=== PATIENT | female | born 1960 | race Caucasian/White ===

== ENCOUNTER 2020-01-02 18:50 | Emergency (ER) | payer BC, SELFPAY ==
[2020-01-02 19:18] VITALS: BP 112/80; PULSE 72; RESP 16; TEMP 36.7; O2SAT 98
--- NOTE | 2020-01-02 19:28 | ED.GENADULT ---
HPI - General Adult General Chief complaint: Dizziness Stated complaint: finger/toes/pain/dizziness History of Present Illness HPI narrative: This is a 59 year old female that is coming in with numbness and tingling to bilateral feet and hands has had some spinal stenosis for years of the c5,-7 it has progressively gotten worse and she has had to tilt her head a certain way for her hands not to become flaccid. Patient states she is also having this numbness and tingling to feet . Patient is most concerned because she is starting to have loss of continence and she does not know what to do Related Data Home Medications Medication Instructions Recorded Confirmed acyclovir 01/02/20 alprazolam 01/02/20 levothyroxine 01/02/20 Allergies Allergy/AdvReac Type Severity Reaction Status Date / Time codeine Allergy Unknown Verified 01/02/20 19:17 Review of Systems Review of Systems: Narrative: CONSTITUTIONAL: Denies fever, chills, or sweats. EYES: Denies visual changes, redness, or discharge. ENT: Denies rhinorrhea, congestion, sore throat, or otalgia. CARDIOVASCULAR:Denies chest pain, palpitations, or edema. RESPIRATORY: Denies cough or dyspnea. GASTROINTESTINAL: Denies abdominal pain, nausea, vomiting, or diarrhea. GENITOURINARY: Denies dysuria or hematuria. SKIN:[Denies rash or itching. MUSCULOSKELETAL:Denies back pain, joint pain, or myalgia. NEUROLOGIC: Denies headache, reports numbness, or weakness. Loss of bladder control PSYCHIATRIC:Denies anxiety or depression PMFSH Comments At time as signature, I have reviewed and agree with nursing past medical, social, surgical and family history. Please see nursing chart for further information. There is no relevant family history pertinent to the presenting complaint. Exam Narrative: Exam Narrative: GENERAL:Well-appearing, well-nourished, and in no acute distress. HEAD:Normocephalic, atraumatic. EYES: PERRLA and EOMI. ENT: Nares clear, no rhinorrhea or epistaxis. Mucous membranes moist. NECK: Supple. CHEST: Clear to auscultation. No respiratory distress. HEART: Regular rate and rhythm. No murmur heard. Normal peripheral pulses. ABDOMEN: Soft, nontender, nondistended, normal active bowel sounds. Patient has started to lose bladder control bilateral hands and feet having numbness and tingling EXTREMITIES: Decreased range of motion arms go flaccid when head is turned a certain way. No edema. SKIN: Warm, dry, no rash. NEURO: No focal deficits. Alert and oriented x3. Multiple neuro deficits Patient has a past medical history of severe spinal stenosis patient is supposed to be seeing a neurosurgeon symptoms have increasingly gotten worse the past day. Per patient her job she is lifting a lot of heavy things she is dizzy has to tilt her head in order to not feel so dizzy and is starting to lose control of her hand as well as bladder. Course REFERRAL MANAGER/PA Physician Supervision Discussed with patient she is going to need a neurosurgeon she needs to go to the emergency room does not want to take ambulance had a long conversation with her patient will go to [facility] because place spoke to Shanell in the emergency room patient significant other picked her up Vital Signs Vital signs: Vital Signs Temperature 98.1 F 01/02/20 19:18 Pulse Rate 72 01/02/20 19:18 Respiratory Rate 16 01/02/20 19:18 Blood Pressure 112/80 01/02/20 19:18 Pulse Oximetry 98 01/02/20 19:18 Temperature 98.1 F 01/02/20 19:18 Pulse Rate 72 01/02/20 19:18 Respiratory Rate 16 01/02/20 19:18 Blood Pressure 112/80 01/02/20 19:18 Pulse Oximetry 98 01/02/20 19:18 Medical Decision Making Vital Signs Vital Signs: Vital Signs Temperature 98.1 F 01/02/20 19:18 Pulse Rate 72 01/02/20 19:18 Respiratory Rate 16 01/02/20 19:18 Blood Pressure 112/80 01/02/20 19:18 Pulse Oximetry 98 01/02/20 19:18 Temperature 98.1 F 01/02/20 19:18 Pulse Rate 72 01/02/20 19:18 Res
== END 2020-01-02 19:40 | disposition short-term general hospital (02) ==
LOC: EXPCOLL 19:03
PROVIDERS: Emergency Provider Nurse Practitioner Family
DX: R20.0 Anesthesia of skin (principal); R20.2 Paresthesia of skin; R42 Dizziness and giddiness; R32 Unspecified urinary incontinence
CPT/HCPCS: 99212; G0463

== ENCOUNTER 2020-02-18 11:52 | Emergency (ER) | payer BC, SELFPAY ==
[2020-02-18 12:10] VITALS: BP 109/65; PULSE 78; RESP 16; TEMP 37.1; O2SAT 99
--- NOTE | 2020-02-18 13:13 | ED.GENADULT ---
HPI - General Adult General Chief complaint: Allergic Reaction Stated complaint: allergic reaction Time Seen by Provider: 02/18/20 13:13 Source: patient and RN notes reviewed Mode of arrival: ambulatory Limitations: no limitations History of Present Illness HPI narrative: 59-year-old female presents with complaints of bilateral lower leg swelling in which she relates to taking Bactrim for the past 2 days. Tayla says she started Bactrim 2 days ago (last 1 this morning at 06:00) due to urinary complaints and noticed lower leg swelling 36-48 hours later after having a day of generalized body itching without rash which has subsided. Swelling to lower legs has increased over the last 24 hours. No treatment. Denies new changes in personal hygiene products or laundry detergent. No new foods or any other new medications. No burning, bleeding, or drainage. Denies fever, chills, headaches, weakness, fatigue, myalgia, facial swelling, or tongue swelling. Denies chest pain or dyspnea. Post-Menopausal. The patient reports she have not been diagnosed with COVID-19. The patient reports she is not waiting for the results of a COVID-19 lab test. The patient reports she do not have fever, chills, weakness, fatigue, myalgia, or facial swelling. The patient reports she do not have a new or worsening cough or shortness of breath. Denies chest pain. The patient reports she do not have any rhinorrhea, congestion, sore throat, nausea, vomiting, abdominal pain, and diarrhea. Tolerating po intake well. Denies recent traveling. Denies concerns for COVID-19 or exposures been home since [id number] order except for essential household needs, working, and return home. At this time, patient is not suspected of having COVID-19. Some parts of this dictation were generated by voice recognition software and may contain typographical and/or grammatical inaccuracies. Related Data Home Medications Medication Instructions Recorded Confirmed acyclovir 01/02/20 alprazolam 01/02/20 levothyroxine 01/02/20 sulfamethoxazole-trimethoprim 02/18/20 Allergies Allergy/AdvReac Type Severity Reaction Status Date / Time codeine Allergy Unknown Verified 01/02/20 19:17 sulfamethoxazole Allergy Swelling Verified 02/18/20 13:23 [From Bactrim] trimethoprim [From Bactrim] Allergy Swelling Verified 02/18/20 13:23 Review of Systems Review of Systems: Narrative: CONSTITUTIONAL: Denies fever, chills, sweats. EYES: Denies visual changes, redness, discharge. ENT: Denies rhinorrhea, congestion, sore throat, otalgia. CARDIOVASCULAR: Denies chest pain, palpitations, edema. Complains of bilateral lower leg swelling in which she relates to taking Bactrim RESPIRATORY: Denies dyspnea, wheezing, cough. GASTROINTESTINAL: Denies abdominal pain, nausea, vomiting, diarrhea. GENITOURINARY: Denies dysuria, hematuria, abnormal discharge. SKIN: Complains of generalized body itching without rash-relieved. Denies drainage. MUSCULOSKELETAL: Denies acute back pain, joint pain, or myalgia. NEUROLOGIC: Denies numbness or focal weakness. PSYCHIATRIC: Denies anxiety or depression. All systems reviewed & are unremarkable except as noted in HPI and below. [facility] Past Medical History Medical History (Updated 02/24/20 @ 17:37 by KAVON Neal) Anxiety Back pain Hypothyroidism Kidney damage LT due to UTI Menopause Ureteral reflux Noted with IVP dye UTI (urinary tract infection) Surgical History Surgical History (Updated 02/18/20 @ 13:23 by KAVON Neal) No significant past surgical history Family History Family History (Updated 02/18/20 @ 13:23 by KAVON Neal) Father Heart disease Diabetes mellitus Mother No problems noted. Social History Social History (Updated 02/18/20 @ 13:24 by KAVON Neal) Smoking status: Former smoker Smoking end date: 09/17/90 Alcohol intake: current Substance use: never
--- NOTE | 2020-02-18 13:22 | PC.NURSE ---
in br to obtain ua spec.
== END 2020-02-18 13:38 | disposition home or self-care (01) ==
PROVIDERS: Emergency Provider Nurse Practitioner Family
DX: R30.0 Dysuria (principal); T36.8X5A Adverse effect of other systemic antibiotics, initial encounter; F41.9 Anxiety disorder, unspecified; E03.9 Hypothyroidism, unspecified; Z87.440 Personal history of urinary (tract) infections; Z87.891 Personal history of nicotine dependence
CPT/HCPCS: 81003; 87086; 99213; G0463

== ENCOUNTER 2020-03-03 12:41 | Emergency (ER) | payer BC, SELFPAY ==
--- NOTE | 2020-03-03 13:56 | PC.NURSE ---
unkown time or reason for walkout. registration stated after registration process pt said was going shopping first and would be back.
--- NOTE | 2020-03-03 13:59 | PC.NURSE ---
this rn did not see or talk to pt. unkown complaint or pain level. registration stated left after registration process was done. was going shopping and then was coming back.
== END 2020-03-03 14:01 | disposition left against medical advice (07) ==
PROVIDERS: Emergency Provider Nurse Practitioner
DX: Z53.21 Procedure and treatment not carried out due to patient leaving prior to being seen by health care provider (principal)
CPT/HCPCS: 99199

== ENCOUNTER 2020-05-07 08:59 | Outpatient (CLI) | payer BC, SELFPAY ==
--- NOTE | 2020-05-07 | EST_ITS ---
Patient Info Name: Tayla Lopez Age: 59 years : 1960 Gender: Female Ht: 69 in Wt: 171 lbs BSA: 1.95 m2 Exam Date: 05/07/2020 11:14 AM Exam Location: [facility] Stress Patient Status: Outpatient Admit Date: 05/07/2020 Staff Ordering Physician: Demetri Llamas PA-C Attending Provider: Demetri Llamas PA-C Exercise Technologist: La Nena Nicole RDCS Exercise Physician: Chris Izquierdo DO Exam Type: CA stress test treadmill w NM Study Info Indications R07.9 - Chest pain, unspecified A pharmacological stress test was performed. Summary 1. 1. Negative Castro exercise stress test for ischemic ST changes by ECG criteria. 2. 2. Good functional capacity, achieving 10 METs of workload. 3. 3. Appropriate HR response to exercise. 4. 4. Appropriate HR recovery at 1 minute post exercise. 5. 5. Nuclear scan to follow and will be reported separately. Please correlate with it. 6. 6. Patient informed of the above results. Protocol: Castro Stress ECG Details Stage: REST Duration (min): 5 min : 19 sec Speed (mph): 0.0 Grade (%): 0 HR (bpm): 48 SBP (mmHg): 120 DBP (mmHg): 79 METS: --- Stage: REST Duration (min): 16 min : 52 sec Speed (mph): 0.0 Grade (%): 0 HR (bpm): 55 SBP (mmHg): 120 DBP (mmHg): 79 METS: --- Stage: STAGE 1 Duration (min): 1 min : 0 sec Speed (mph): 1.7 Grade (%): 10 HR (bpm): 91 SBP (mmHg): 120 DBP (mmHg): 79 METS: --- Stage: STAGE 1 Duration (min): 2 min : 0 sec Speed (mph): 1.7 Grade (%): 10 HR (bpm): 96 SBP (mmHg): 120 DBP (mmHg): 79 METS: --- Stage: STAGE 1 Duration (min): 3 min : 0 sec Speed (mph): 1.7 Grade (%): 10 HR (bpm): 98 SBP (mmHg): 140 DBP (mmHg): 76 METS: --- Stage: STAGE 2 Duration (min): 1 min : 0 sec Speed (mph): 2.5 Grade (%): 12 HR (bpm): 115 SBP (mmHg): 140 DBP (mmHg): 76 METS: --- Stage: STAGE 2 Duration (min): 2 min : 0 sec Speed (mph): 2.5 Grade (%): 12 HR (bpm): 127 SBP (mmHg): 154 DBP (mmHg): 79 METS: --- Stage: STAGE 2 Duration (min): 3 min : 0 sec Speed (mph): 2.5 Grade (%): 12 HR (bpm): 125 SBP (mmHg): 154 DBP (mmHg): 79 METS: --- Stage: STAGE 3 Duration (min): 1 min : 0 sec Speed (mph): 3.4 Grade (%): 14 HR (bpm): 146 SBP (mmHg): 151 DBP (mmHg): 82 METS: --- Stage: STAGE 3 Duration (min): 2 min : 0 sec Speed (mph): 3.4 Grade (%): 14 HR (bpm): 152 SBP (mmHg): 151 DBP (mmHg): 82 METS: --- Stage: STAGE 3 Duration (min): 3 min : 0 sec Speed (mph): 3.4 Grade (%): 14 HR (bpm): 157 SBP (mmHg): 161 DBP (mmHg): 89 METS: --- Stage: RECOVERY Duration (min): 0 min : 59 sec Speed (mph): 0.0 Grade (%): 0 HR (bpm): 105 SBP (mmHg): 161 DBP (mmHg): 89 METS: --- Stage:
== END 2020-05-07 09:00 | disposition home or self-care (01) ==
PROVIDERS: PCP Physician Assistant; Visit Provider Physician Assistant
DX: R07.9 Chest pain, unspecified (principal)
CPT/HCPCS: 93017

== ENCOUNTER 2020-05-07 09:12 | Outpatient (CLI) | payer BC, SELFPAY ==
--- NOTE | ~2020-05-07 | NM_ITS ---
EXAMINATION: NM stress w perf spect multi DATE: 05/07/2020 12:41 INDICATION: Chest pain. TECHNIQUE: Rest images were obtained following intravenous administration of 11.7 mCi Tc99m tetrofosm in ([employer]). The patient performed an exercise activity. At peak exercise, 32.2 mCi Tc99m tetrofosmi n (Myoview) was administered intravenously, and stress images were obtained. Data was reconstructed i nto short axis and horizontal and vertical long axis SPECT images. Gated SPECT images were also obtai dejuan. COMPARISON: None. FINDINGS: There is no definite reversible or fixed perfusion abnormality to suggest ischemia or infar ction. There is no segmental wall motion abnormality. Left ventricular ejection fraction measures > 70%. IMPRESSION: 1. No definite ischemia or infarct. 2. Normal left ventricular ejection fraction measuring >70%. Reviewed, dictated and finalized at location A.
--- NOTE | ~2020-05-07 | US_ITS ---
EXAMINATION: US carotid duplex BI DATE: 05/07/2020 09:57 INDICATION: Neck pain. TECHNIQUE: Grayscale, color Doppler, and pulsed Doppler images of the cervical carotid arteries were obtained. The degree of vessel stenosis is placed in one of the following categories: normal, <50%, 5 0-69%, >=70% but less than near-occlusion, near-occlusion, or total occlusion. Note that percent sten osis relative to normal distal artery lumen diameter is indirectly measured from velocity measurement s as described by Samy, et al. Radiology 2003; 229:340-346. COMPARISON: None. FINDINGS: RIGHT: The right common carotid artery (CCA) peak systolic velocity (PSV) is 62 cm/s. The right internal car otid artery (ICA) PSV is 53 cm/s. The right ICA end-diastolic velocity (EDV) is 26 cm/s. The right IC A/CCA PSV ratio is 0.9. Grayscale and color Doppler images yield an estimate of <50% diameter reducti on from plaque in the ICA. There is antegrade flow in the right vertebral artery. LEFT: The left CCA PSV is 67 cm/s. The left ICA PSV is 51 cm/s. The left ICA EDV is 21 cm/s. The left ICA/C CA PSV ratio is 0.8. Grayscale and color Doppler images yield an estimate of <50% diameter reduction from plaque in the ICA. There is antegrade flow in the left vertebral artery. IMPRESSION: 1. <50% stenosis in the right internal carotid artery. 2. <50% stenosis in the left internal carotid artery. Reviewed, dictated and finalized at location A.
== END 2020-05-07 09:13 | disposition home or self-care (01) ==
PROVIDERS: PCP Physician Assistant; Visit Provider Physician Assistant
DX: R07.9 Chest pain, unspecified (principal); I65.23 Occlusion and stenosis of bilateral carotid arteries; M54.2 Cervicalgia
CPT/HCPCS: 78452; 93880; A9502

== ENCOUNTER → 2021-05-30 16:58 | Outpatient (CLI) | payer BC, SELFPAY ==
--- NOTE | ~2021-05-30 | MM_ITS ---
EXAMINATION: MM screening [facility] BI w babs HISTORY: Screening TECHNIQUE: Craniocaudal and mediolateral oblique 3-D tomosynthesis images were obtained and synthetic 2-D images were generated. CAD analysis was submitted and interpreted. COMPARISON: Comparison to multiple prior studies sequentially, with oldest reviewed study dated 01/2016. BREAST PARENCHYMAL COMPOSITION: There are scattered areas of fibroglandular density. FINDINGS: There is no evidence of suspicious mass, calcification, or architectural distortion to sugg est malignancy in either breast. There has been no suspicious interval change. IMPRESSION: 1. No mammographic evidence of malignancy. 2. Recommend routine screening mammography in one year. BI-RADS Category 1: Negative Reviewed, dictated and finalized at location A.
== END ==
PROVIDERS: PCP Physician Assistant
DX: Z12.31 Encounter for screening mammogram for malignant neoplasm of breast (principal)
CPT/HCPCS: 77063; 77067

== ENCOUNTER 2021-07-14 12:29 | Outpatient (CLI) | payer BC, SELFPAY ==
--- NOTE | ~2021-07-14 | MR_ITS ---
EXAMINATION: MR knee RT wo con DATE: 07/14/2021 13:19 INDICATION: Right knee pain. TECHNIQUE: Magnetic resonance imaging (MRI) of the right knee was performed without intravenous contr ast. Sequences included axial PD-weighted FS FSE, coronal PD-weighted FSE and PD-weighted FS FSE, sag ittal PD-weighted FSE, and sagittal T2-weighted FS FSE. COMPARISON: None. FINDINGS: Medial compartment: There is a radial tear of the junction of body and posterior horn of medial meniscus. There is cartil age surface irregularity of tibial condyle and femoral condyle. Lateral compartment: Increased signal in anterior horn and body of lateral meniscus does not definitely extend to an artic ular surface to indicate a tear. There is deep partial thickness cartilage loss of tibial condyle inv olving the central articular surface. There is cartilage surface irregularity of femoral condyle. Patellofemoral compartment: There is shallow partial-thickness cartilage loss of patellar medial and lateral facets and median ri dge. There is partial-thickness cartilage loss of medial trochlea with mild subchondral edema-like ma rrow signal intensity. Ligaments and tendons: The anterior and posterior cruciate ligaments are normal. Medial collateral ligament is normal. There are changes of prior sprain of fibular collateral ligament catheterized by thickening and increased signal intensity proximally. There is mild patellar tendinopathy. Fluid: There is a small knee joint effusion. There is trace fluid in a Kinsey's cyst. There is mild prepatell ar and superficial infrapatellar bursitis. IMPRESSION: 1. Moderate chondrosis of lateral compartment and mild chondrosis of medial and patellofemoral compar tments. 2. Tear of medial meniscus. 3. Small knee joint effusion. Reviewed, dictated and finalized at location A. IMPRESSION: 1. Moderate chondrosis of lateral compartment and mild chondrosis of medial and patellofemoral compartments. 2. Tear of medial meniscus. 3. Small knee joint effusion.
== END 2021-07-14 12:30 | disposition home or self-care (01) ==
LOC: ANHIMG 12:35
PROVIDERS: PCP Physician Assistant; Visit Provider Physician Assistant
DX: M25.461 Effusion, right knee (principal); S83.241A Other tear of medial meniscus, current injury, right knee, initial encounter; X58.XXXA Exposure to other specified factors, initial encounter
CPT/HCPCS: 73721

== ENCOUNTER → 2022-10-05 14:43 | Outpatient (CLI) | payer BC, SELFPAY ==
--- NOTE | ~2022-10-05 | MM_ITS ---
EXAMINATION: MM screening [facility] BI w babs HISTORY: Screening mammogram TECHNIQUE: Craniocaudal and mediolateral oblique 3-D tomosynthesis images were obtained and synthetic 2-D images were generated. CAD analysis was submitted and interpreted. COMPARISON: 05/30/2021, 10/01/2019, 09/18/2018, 09/21/2015 BREAST PARENCHYMAL COMPOSITION: The breasts are almost entirely fatty. FINDINGS: A stable mass in the upper outer quadrant of the left breast is consistent with a benign fi nding. No suspicious mass, calcification, or architectural distortion are identified in either breast to suggest malignancy. There has been no suspicious interval change. IMPRESSION: 1. No mammographic evidence of malignancy. 2. Recommend routine screening mammography in one year. BI-RADS Category 2: Benign finding(s). Reviewed, dictated and finalized at location A. NG TEACHER
== END ==
PROVIDERS: PCP Physician Assistant; Visit Provider Physician Assistant
DX: Z12.31 Encounter for screening mammogram for malignant neoplasm of breast (principal)
CPT/HCPCS: 77063; 77067

== ENCOUNTER 2023-08-05 14:46 | Emergency (ER) | payer SELFPAY ==
[2023-08-05 15:06] VITALS: BP 125/75; PULSE 84; RESP 16; TEMP 37.2; O2SAT 97
[2023-08-05 15:07] VITALS: BP 125/75; PULSE 84; RESP 16; TEMP 37.2; O2SAT 97
--- NOTE | 2023-08-05 16:28 | ED.GENADULT ---
HPI - General Adult General Chief complaint: Upper Respiratory Infection Stated complaint: cough,fever,sore throat Source: patient Mode of arrival: ambulatory Limitations: no limitations History of Present Illness HPI narrative: Patient presents for evaluation of a cough for the last 4 weeks. Cough is productive of green sputum and she has some mild shortness of breath. Reports low-grade fever, sinus congestion and thick green nasal drainage. Denies otalgia, nausea, vomiting, diarrhea. She was recently traveling with a friend who had respiratory symptoms at the time at which they were together. She is a former smoker. She has experienced some urinary frequency with mild dysuria at the end of her urinary stream for the past few days. Denies any abdominal and low back pain. Related Data Home Medications Medication Instructions Recorded Confirmed ergocalciferol (vitamin D2) 50 mcg 50 mcg PO DAILY 04/21/20 04/05/22 (2,000 unit) capsule vitamin B complex 1 cap PO DAILY 04/21/20 04/05/22 ascorbic acid (vitamin C) 1,000 mg 1 g PO DAILY 07/13/21 04/05/22 tablet cod liver oil 1 cap PO DAILY 07/13/21 04/05/22 zinc 50 mg tablet 50 mg PO DAILY 07/13/21 04/05/22 acyclovir 400 mg tablet mg 08/05/23 copper 08/05/23 Allergies Allergy/AdvReac Type Severity Reaction Status Date / Time meloxicam Allergy Intermediate Hives Verified 08/05/23 15:18 tramadol Allergy Mild Vomiting Verified 08/05/23 15:18 Review of Systems Review of Systems: CONSTITUTIONAL: Reports fever. Denies chills or sweats. EYES: Denies visual changes, redness, or discharge. ENT: reports sinus congestion thick green drainage from her nares. Denies otalgia. CARDIOVASCULAR: Denies chest pain, palpitations, or edema. RESPIRATORY: Denies cough or dyspnea. GASTROINTESTINAL: Denies abdominal pain, nausea, vomiting, or diarrhea. GENITOURINARY:Reports urinary frequency and some burning at the end of urinary stream. SKIN: Denies rash or itching. MUSCULOSKELETAL: Denies back pain, joint pain, or myalgia. NEUROLOGIC: Denies headache, numbness, dizziness, or weakness. PSYCHIATRIC: Denies anxiety or depression. [facility] Past Medical History Medical History Anxiety Back pain Hypothyroidism Kidney damage LT due to UTI Menopause MRSA cellulitis Ureteral reflux Noted with IVP dye UTI (urinary tract infection) Surgical History Surgical History No significant past surgical history Family History Family History Father Heart disease Diabetes mellitus Mother No problems noted. Social History Social History Smoking status: Former smoker Second hand tobacco smoke exposure: No Smoking end date: 09/17/90 Alcohol intake: current Drinks per week: 4 Substance use: never Living arrangements: with family Occupation/Education: occupation Gender identity (if verbalized by the patient): Female Exam Narrative: GENERAL: Well-appearing, well-nourished, and in no acute distress. HEAD: Normocephalic, atraumatic. EYES: PERRLA and EOMI. ENT: Nares clear, no rhinorrhea or epistaxis. Mucous membranes moist. Oropharynx without tonsillar hypertrophy exudate or other lesions. Bilateral TMs pearly lam nonbulging NECK: Supple. No adenopathy or masses. No carotid bruits or JVD CHEST: Wheezing and rales noted in bilateral lung montiel posteriorly. HEART: Regular rate and rhythm. No murmur heard. Normal peripheral pulses. ABDOMEN: Soft, nontender, nondistended, normal active bowel sounds. EXTREMITIES: Normal range of motion. No edema. SKIN: Warm, dry, no rash. NEURO: No focal deficits. Alert and oriented x3. PSYCH: Normal mood and affect. Course Course Emergency Course: This i
--- NOTE | 2023-08-05 16:31 | PC.NURSE ---
aware of need for ua spec. 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
--- NOTE | 2023-08-05 16:36 | PC.NURSE ---
in br to obtain ua spec.
== END 2023-08-05 16:56 | disposition home or self-care (01) ==
PROVIDERS: Emergency Provider Nurse Practitioner; PCP Physician Assistant
DX: J18.9 Pneumonia, unspecified organism (principal); Z87.891 Personal history of nicotine dependence; E03.9 Hypothyroidism, unspecified; Z86.14 Personal history of Methicillin resistant Staphylococcus aureus infection
CPT/HCPCS: 81003; 99213; G0463

== ENCOUNTER 2024-01-25 16:51 | Outpatient (CLI) | payer BC, SELFPAY ==
--- NOTE | ~2024-01-25 | XR_ITS ---
EXAMINATION: XR chest 2V DATE: 01/25/2024 17:05 INDICATION: Pneumonia with shortness of breath, cough and congestion TECHNIQUE: frontal and lateral views of the chest were obtained. COMPARISON: None FINDINGS: The lungs are clear with no focal airspace opacities, pulmonary edema, pleural effusion or pneumothor ax. The cardiomediastinal silhouette is normal. Mild to moderate thoracic and severe upper lumbar spo ndylosis. IMPRESSION: 1. No acute cardiopulmonary disease. Reviewed, dictated and finalized at location A.
== END 2024-01-25 16:52 ==
PROVIDERS: PCP Physician Assistant; Visit Provider Physician Assistant
DX: J18.9 Pneumonia, unspecified organism (principal)
CPT/HCPCS: 71046

== ENCOUNTER 2024-04-23 15:42 | Outpatient (CLI) | payer BC, SELFPAY ==
--- NOTE | ~2024-04-23 | XR_ITS ---
XR abdomen/kub 1V Ordering provider: Julián Madison DO History: . R10.9 - Unspecified abdominal pain . Comparison: None FINDINGS: BOWEL: Nonobstructive bowel gas pattern. ORGANOMEGALY: None. SIGNIFICANT PATHOLOGIC CALCIFICATIONS: None. OTHER: No free air is seen under the diaphragm. IMPRESSION: NO ACUTE ABDOMINAL FINDINGS. Reviewed, dictated and finalized at location A.
== END 2024-04-23 15:43 ==
PROVIDERS: Visit Provider Internal Medicine
DX: R10.9 Unspecified abdominal pain (principal)
CPT/HCPCS: 74018

== ENCOUNTER 2024-06-26 16:41 | Outpatient (CLI) | payer BC, SELFPAY ==
--- NOTE | ~2024-06-26 | XR_ITS ---
XR foot RT min 3V Ordering provider: Julián Madison DO History: . M79.671 - Pain in right foot . Comparison: None. FINDINGS: BONES: No acute fracture or dislocation. JOINT SPACES: Narrowing of the proximal and distal interphalangeal joints. No tarsal coalition. SOFT TISSUES: Small metallic shadow is seen in the subcutaneous tissue on the plantar aspect at the l evel of the fourth metatarsal bone distally. Ossification of the insertion of the tendo Achilles. IMPRESSION: No acute osseous abnormality of the right foot. subcutaneous tissues foreign body opposite the fourth metatarsal bone distally. Reviewed, dictated and finalized at location A.
== END 2024-06-26 16:42 | disposition home or self-care (01) ==
PROVIDERS: PCP Internal Medicine; Visit Provider Internal Medicine
DX: L92.3 Foreign body granuloma of the skin and subcutaneous tissue (principal)
CPT/HCPCS: 73630

== ENCOUNTER 2024-08-04 09:01 | Outpatient (CLI) | payer BC, SELFPAY ==
--- NOTE | ~2024-08-04 | MR_ITS ---
EXAMINATION: MR foot RT wo con DATE: 08/04/2024 09:45 INDICATION: Right foot pain TECHNIQUE: Magnetic resonance imaging (MRI) of the right fore/mid foot was performed without intraven ous contrast. Sequences included sagittal T1-weighted FSE, sagittal fluid sensitive FSE STIR, coronal PD-weighted FS FSE, coronal T1-weighted FSE, axial PD-weighted FS FSE, and axial PD-weighted FSE. COMPARISON: Radiograph dated 06/26/2024 FINDINGS: Also prominent magnetic field artifact associated with a tiny metallic foreign body in the soft tissu es plantar to the head of the fourth metatarsal. Edema-like marrow signal change and some periosteal reaction associated with a healing nondisplaced transverse extra articular fracture at the proximal m etaphysis at the base of the fifth proximal phalanx which remains in near-anatomic alignment. Likely osteoarthritis related mild edema-like and cystlike change at the medial cuneiform along its proximal articulation with the mid cuneiform. Marrow signal is otherwise unremarkable with no other fractures , reactive edema or pathologic marrow replacing process. Remaining joint spaces are unremarkable. The Lisfranc ligament complex and the collateral ligament complex at the metatarsophalangeal and interph alangeal joints are normal. Visualized portion of the flexor and extensor tendons are normal. Physiol ogic amount fluid in the joint space. No abnormal fluid collections identified. IMPRESSION: 1. Healing nondisplaced extra articular fracture at the proximal metaphysis at the base of the right fifth proximal phalanx. 2. Small metallic foreign body in the soft tissues plantar to the head of the fourth metatarsal. 3. Osteoarthritis with small region of high-grade chondromalacia at the medial cuneiform along its ar ticulation with the mid cuneiform. Reviewed, dictated and finalized at location [facility] [employer] IMPRESSION: 1. Healing nondisplaced extra articular fracture at the proximal metaphysis at the base of the right fifth proximal phalanx. 2. Small metallic foreign body in the soft tissues plantar to the head of the f ourth metatarsal. 3. 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
== END 2024-08-04 09:02 | disposition home or self-care (01) ==
LOC: MICIMG 09:03
PROVIDERS: PCP Internal Medicine; Visit Provider Internal Medicine
DX: S92.514A Nondisplaced fracture of proximal phalanx of right lesser toe(s), initial encounter for closed fracture (principal); X58.XXXA Exposure to other specified factors, initial encounter; M79.5 Residual foreign body in soft tissue; M19.071 Primary osteoarthritis, right ankle and foot; M94.271 Chondromalacia, right ankle and joints of right foot
CPT/HCPCS: 73718